=== PATIENT | female | born 1940 | race Caucasian/White ===

== ENCOUNTER → 2016-11-24 10:39 | Outpatient (CLI) | payer MEDICARE, OTHER ==
[2010-03-10 12:09] VITALS: BMI 30.5
[2016-11-24 11:44] LABS: CHOL - HDL RATIO 4.8 ratio (2.3-4.1); THYROID STIMULATING HORMONE 1.08 uIU/mL (0.36-3.74)
== END | disposition home or self-care (01) ==
LOC: D.LAB 10:39
PROVIDERS: Family Medicine
DX: I10 Essential (primary) hypertension (principal); E03.8 Other specified hypothyroidism; E55.9 Vitamin D deficiency, unspecified

== ENCOUNTER → 2017-05-22 10:18 | Outpatient (CLI) | payer MEDICARE, OTHER ==
[2010-03-10 12:09] VITALS: BMI 30.5
[2017-05-22 11:09] LABS: CHOL - HDL RATIO 4.6 ratio (2.3-4.1)
== END | disposition home or self-care (01) ==
LOC: D.LAB 10:18
PROVIDERS: Family Medicine
DX: E78.5 Hyperlipidemia, unspecified (principal)

== ENCOUNTER → 2017-05-31 13:04 | Outpatient (CLI) | payer MEDICARE, OTHER ==
[2010-03-10 12:09] VITALS: BMI 30.5
== END | disposition home or self-care (01) ==
LOC: D.US 13:04
DX: R22.42 Localized swelling, mass and lump, left lower limb (principal)

== ENCOUNTER → 2017-11-14 10:36 | Outpatient (CLI) | payer MEDICARE, OTHER ==
[2010-03-10 12:09] VITALS: BMI 30.5
[2017-11-14 11:28] LABS: BASOPHILS 0.2 % (0-2); EOSINOPHILS 0.6 % (0-7); HEMATOCRIT 38.4 % (36.0-48.0); HEMOGLOBIN 12.8 g/dL (12-16); IMMATURE GRANULOCYTES 0.1 % (0-5); LYMPHOCYTES 32.3 % (15-50); MCH 30.1 pg (26.0-34.0); MCHC 33.3 g/dL (31.0-37.0); MCV 90.4 fL (80.0-100.0); MEAN PLATELET VOLUME 9.7 fL (7.4-10.4); MONOCYTES 6.5 % (2-11); NEUTROPHILS 60.3 % (40-80); PLATELET COUNT 206 10x3/uL (130-400); RBC 4.25 10x6/uL (4.00-5.40); RDW 13.3 % (11.5-14.5); WBC 8.5 10x3/uL (4.8-10.8)
[2017-11-14 11:32] LABS: ALBUMIN 3.8 g/dL (3.4-5.0); ALKALINE PHOSPHATASE 61 U/L (46-116); ALT (SGPT) 21 U/L (10-68); CALC OSMOLALITY 260 mosm/kg (275-300); CALCIUM 8.7 mg/dL (8.5-10.1); CARBON DIOXIDE 23.9 mmol/L (21.0-32.0); CHLORIDE - SERUM 96 mmol/L (98-107); CHOL - HDL RATIO 4.6 ratio (2.3-4.1); CHOLESTEROL, TOTAL 192 mg/dL (0-200); CREATININE - SERUM 0.6 mg/dL (0.6-1.3); GLUCOSE 98 mg/dL (74-106); HDL CHOLESTEROL 42 mg/dL (32-96); LDL CHOLESTEROL 107 mg/dL (0-100); LDL-HDL RATIO 2.5 ratio (1.5-3.5); POTASSIUM - SERUM 3.9 mmol/L (3.5-5.1); PROTEIN - SERUM 7.2 g/dL (6.4-8.2); SODIUM 131 mmol/L (136-145); THYROID STIMULATING HORMONE 0.97 uIU/mL (0.36-3.74); TRIGLYCERIDE 215 mg/dL (30-200); UREA NITROGEN 8 mg/dL (7-18); eGFR NON AFRICAN AMERICAN > 90 mL/min (90-120)
== END | disposition home or self-care (01) ==
LOC: D.LAB 08:00
PROVIDERS: Family Medicine
DX: Z00.01 Encounter for general adult medical examination with abnormal findings (principal); E78.5 Hyperlipidemia, unspecified; E03.8 Other specified hypothyroidism; E55.9 Vitamin D deficiency, unspecified

== ENCOUNTER → 2018-11-19 09:55 | Outpatient (CLI) | payer MEDICARE, OTHER ==
[2010-03-10 12:09] VITALS: BMI 30.5
[2018-11-19 10:37] LABS: BASOPHILS 0.3 % (0-2); EOSINOPHILS 0.6 % (0-7); HEMATOCRIT 40.5 % (36.0-48.0); HEMOGLOBIN 13.8 g/dL (12-16); IMMATURE GRANULOCYTES 0.3 % (0-5); LYMPHOCYTES 29.1 % (15-50); MCHC 34.1 g/dL (31.0-37.0); MONOCYTES 6.2 % (2-11); NEUTROPHILS 63.5 % (40-80); PLATELET COUNT 237 10x3/uL (130-400); RBC 4.45 10x6/uL (4.00-5.40); RDW 14.9 % (11.5-14.5); WBC 8.7 10x3/uL (4.8-10.8)
[2018-11-19 11:23] LABS: ALBUMIN 4.4 g/dL (3.4-5.0); ALKALINE PHOSPHATASE 71 U/L (46-116); ALT (SGPT) 21 U/L (10-68); BILIRUBIN - TOTAL 0.38 mg/dL (0.2-1.3); CALC OSMOLALITY 254 mosm/kg (275-300); CALCIUM 8.9 mg/dL (8.5-10.1); CARBON DIOXIDE 26.5 mmol/L (21.0-32.0); CHLORIDE - SERUM 97 mmol/L (98-107); CHOL - HDL RATIO 3.8 ratio (2.3-4.1); CHOLESTEROL, TOTAL 217 mg/dL (0-200); CREATININE - SERUM 0.7 mg/dL (0.6-1.3); GLUCOSE 110 mg/dL (74-106); HDL CHOLESTEROL 57 mg/dL (32-96); LDL CHOLESTEROL 137 mg/dL (0-100); LDL-HDL RATIO 2.4 ratio (1.5-3.5); POTASSIUM - SERUM 3.6 mmol/L (3.5-5.1); PROTEIN - SERUM 7.9 g/dL (6.4-8.2); SODIUM 127 mmol/L (136-145); TRIGLYCERIDE 119 mg/dL (30-200); UREA NITROGEN 10 mg/dL (7-18); eGFR NON AFRICAN AMERICAN 86 mL/min (90-120)
== END | disposition home or self-care (01) ==
LOC: D.LAB 08:30
PROVIDERS: ATTEND Family Medicine
DX: Z00.01 Encounter for general adult medical examination with abnormal findings (principal); K50.90 Crohn's disease, unspecified, without complications

== ENCOUNTER → 2019-01-23 11:39 | Outpatient (CLI) | payer MEDICARE, OTHER ==
[2010-03-10 12:09] VITALS: BMI 30.5
== END | disposition home or self-care (01) ==
LOC: D.HCCARDIO 11:39
PROVIDERS: ATTEND Internal Medicine Cardiovascular Disease
DX: I20.9 Angina pectoris, unspecified (principal)